=== PATIENT | male | born 1955 | race Caucasian/White ===

== ENCOUNTER 2019-01-06 07:58 | Day surgery (SDC) | payer OTHER ==
--- NOTE | 2019-01-05 17:18 | HPN ---
Date/Time of Note Date/Time of Note DATE: 01/05/19 TIME: 17:18 Interval H&P Admission Note Pt. seen H&P reviewed: No system changes OTIS BENITEZ MD Jan 05, 2019 17:18
[2019-01-05 17:50] VITALS: BMI 18.3
[~2019-01-06] VITALS: Ht 162.6 cm; Wt 49.9 kg
[2019-01-06] VITALS (14 sets, daily range): BP systolic 109–150; BP diastolic 66–88; PULSE 78–98; RESP 13–19; Ht 162.6 cm; Wt 49.9 kg
[~2019-01-06 07:58] MED LIST: CEFAZOLIN 1 GM INJ ONE; CEFAZOLIN 1 GM/50 ML (PMX) 50 ML IVPB ONE; POLYMYXIN/BACITRACIN 1L IRRIG IRR ONE; SOD CHLORIDE 0.9% 1,000 ML IV SCH
[2019-01-06] MEDS ORDERED: ATOR20TA38 PO (09:00)
--- NOTE | 2019-01-06 10:56 | PREAC ---
Date/Time of Note Date/Time of Note DATE: 01/06/19 TIME: 10:55 Anesthesia Eval and Record Evaluation Time Pre-Procedure Interview DATE: 01/06/19 TIME: 10:55 Age 63 Sex male NPO: 8 hrs Preoperative diagnosis HEAD AND NECK CANCER Planned procedure YRIS CATH PLACEMENT Past Medical History Past Medical History: Includes Cardio: Dyslipidemia Surgery & Anesthesia Issues No known issue Meds Anticoagulation: No Beta Zo within 24 hr: No Reason Beta Zo not given: Pt. not on B-Zo Reported Medications Atorvastatin Calcium* (Atorvastatin Calcium*) 20 Mg Tablet, 20 MG PO QHS, #30 TAB 01/06/19 Current Medications Sodium Chloride 1,000 ml @ 30 mls/hr Q24H IV ; Start 01/05/19 at 17:30 Meds reviewed: Yes Allergies Coded Allergies: No Known Allergy (Unverified , 01/06/19) Allergies Reviewed: Yes Labs/Studies Labs Reviewed: Reviewed by anesthesiologist test: N/A Studies: ECG (SR@70), CXR ( Prominent interstitial markings are again seen bilaterally, compatible with pulmonary fibrosis as seen on recent prior CT) Pre-procedure Exam Last vitals Vital Signs Date Temp Pulse Resp B/P (MAP) Pulse Ox O2 O2 Flow FiO2 Time Delivery Rate 01/06/19 96.7 90 16 109/66 98 Room Air 09:48 (80) Airway: Adequate mouth opening, Adequate thyromental dist Mallampati: Mallampati II Teeth: Abnormal (UPPER PARTIAL) Lung: Normal Heart: Normal ASA Physical Status ASA physical status: 2 Emergency: None Planned Anesthetic General/MAC: MAC Planned Pain Management Parenteral pain med Pre-operative Attestations Prior to commencing anesthesia and surgery, the patient was re-evaluated, there was verification of: *The patient's identity *The results of appropriate recent lab work and preoperative vital signs *The above evaluation not changing prior to induction *Anesthetic plan, risk benefits, alternative and complications discussed with patient/family; questions answered; patient/family understands, accepts and wishes to proceed. Bradley Montez M.D. Jan 06, 2019 10:56
[2019-01-06] MEDS ORDERED: HYDROmorphONE 1 MG/5 ML IV SYRINGE IV PRN ×3 (11:00)
[2019-01-06] MEDS ORDERED: DIPHENHYDRAMINE 50 MG INJ IV PRN (11:00)
[2019-01-06] MEDS ORDERED: EPHEDrine SULFATE 50 MG/5 ML SYG IV PRN (11:00)
[2019-01-06] MEDS ORDERED: LABETALOL HCL 20MG INJ IV PRN (11:00)
[2019-01-06] MEDS ORDERED: ALBUTEROL 0.083% (NEB) 2.5 MG/3 ML AMP HHN PRN (11:00)
[2019-01-06] MEDS ORDERED: TRIMETHOBENZAMIDE 100 MG/ML VIAL IM PRN (11:00)
[2019-01-06] MEDS ORDERED: MIDAZOLAM 1 MG/ML 2 ML INJ IV PRN (11:00)
[2019-01-06] MEDS ORDERED: OXYCODONE/ACETAMINOPHEN (5/325) TAB PO PRN ×2 (11:00)
[2019-01-06] MEDS ORDERED: IPRATROPIUM (NEB) 0.5 MG/2.5 ML AMP HHN PRN (11:00)
[2019-01-06] MEDS ORDERED: ONDANSETRON 4 MG INJ IV PRN (11:00)
[2019-01-06] MEDS ORDERED: FENTAnyl 50 MCG/ML VIAL IV PRN ×3 (11:00)
[2019-01-06] MEDS ORDERED: hydrALAzine 20 MG INJ IV PRN (11:00)
[2019-01-06] MEDS ORDERED: MEPERIDINE 25 MG INJ IV PRN (11:00)
[2019-01-06] MEDS ORDERED: HEPARIN 1000 UNITS/ML 10 ML INJ ONE (11:04)
[2019-01-06] MEDS ORDERED: LIDOCAINE 1%/EPI (1:100,000) (MDV) 20 ML ONE ×2 (11:04→11:56)
[2019-01-06] MEDS ORDERED: FENTAnyl 50 MCG/ML VIAL ONE (11:26)
[2019-01-06] MEDS ORDERED: PROPOFOL 20 ML ONE (11:26)
[2019-01-06] MEDS ORDERED: ONDANSETRON 4 MG INJ ONE (11:30)
[2019-01-06] MEDS ORDERED: MIDAZOLAM 1 MG/ML 2 ML INJ ONE (11:30)
--- NOTE | 2019-01-06 12:41 | PAC ---
Date/Time of Note Date/Time of Note DATE: 01/06/19 TIME: 12:41 Post-Anesthesia Notes Post-Anesthesia Note Last documented vital signs Vital Signs Date Temp Pulse Resp B/P (MAP) Pulse Ox O2 O2 Flow FiO2 Time Delivery Rate 01/06/19 96.7 90 16 109/66 98 Room Air 09:48 (80) Activity: WNL Respiratory function: WNL Cardiovascular function: WNL Mental status: Baseline Pain reasonably controlled: Yes Hydration appropriate: Yes Nausea/Vomiting absent: Yes Bradley Montez M.D. Jan 06, 2019 12:41
--- NOTE | 2019-01-09 01:11 | RADRPT ---
Vent Rate: 70 bpm RR Interval: 860 msec CA Interval: 157 msec QRS Duration: 93 msec QT Interval: 378 msec QTC Interval: 408 msec P-R-T [place]: 38 - 68 - 52 degrees Sinus rhythm...normal P axis, V-rate 50- 99 Probable left atrial enlargement...P >50mS, <-0.10mV V1 Inferior infarct, acute...ST>0.10mV, T upright, II III aVF Lateral wall also involved...lat Q or ST-T abnormalities Electronically Signed By: Buck Dennison
== END 2019-01-06 14:35 | disposition home or self-care (01) ==
LOC: SDS 07:58
PROVIDERS: ATTEND Radiology Diagnostic Radiology
DX: C76.0 Malignant neoplasm of head, face and neck (principal); E78.5 Hyperlipidemia, unspecified
CPT/HCPCS: 36561; 71045; 93005; C1788; J0690; J1644; J2250; J3010; J2405

== ENCOUNTER 2019-02-20 07:13 | Day surgery (SDC) | payer OTHER ==
[~2019-02-20 07:13] MED LIST changes: +ATOR20TA38 PO; -CEFAZOLIN 1 GM INJ ONE; -CEFAZOLIN 1 GM/50 ML (PMX) 50 ML IVPB ONE; -POLYMYXIN/BACITRACIN 1L IRRIG IRR ONE; -SOD CHLORIDE 0.9% 1,000 ML IV SCH
[2019-02-20] MEDS ORDERED: IOHEXOL 300MG/ML 30 ML BTL ONE (09:14)
[2019-02-20] MEDS ORDERED: HEPARIN 1000 UNITS/ML 10 ML INJ ONE (09:19)
--- NOTE | 2019-02-22 13:25 | HPN ---
Date/Time of Note Date/Time of Note DATE: 02/22/19 TIME: 13:25 Interval H&P Admission Note Pt. seen H&P reviewed: No system changes NED DILLARD MD Feb 22, 2019 13:25
== END 2019-02-23 10:21 | disposition home or self-care (01) ==
LOC: SDS 07:13 → EDSTATUS 09:00 → SDS 02-23 10:21
PROVIDERS: ATTEND Internal Medicine
DX: Z45.2 Encounter for adjustment and management of vascular access device (principal)
CPT/HCPCS: 36598; J1644; Q9967; 77001

== ENCOUNTER 2019-03-10 11:14 | Day surgery (SDC) | payer OTHER ==
[~2019-03-10] VITALS: Ht 162.6 cm; Wt 41.0 kg
[2019-03-10 12:32] VITALS: Ht 162.6 cm; Wt 41.0 kg
[2019-03-10] MEDS ORDERED: HTN MED PO (12:43)
[2019-03-10 12:46] VITALS: BP 137/90; PULSE 86
--- NOTE | 2019-03-10 13:03 | PREAC ---
Date/Time of Note Date/Time of Note DATE: 03/10/19 TIME: 12:58 Anesthesia Eval and Record Evaluation Time Pre-Procedure Interview DATE: 03/10/19 TIME: 12:58 Age 63 Sex male NPO: 8 hrs Preoperative diagnosis dysphagia Planned procedure EGD, PEG placement Past Medical History Past Medical History: Includes (neck cancer) Cardio: HTN Surgery & Anesthesia Issues No known issue Meds Anticoagulation: No Beta Zo within 24 hr: No Reason Beta Zo not given: Pt. not on B-Zo Reported Medications [Htn Med] No Conflict Check, PO DAILY PRN for HIGH BP 03/10/19 Discontinued Reported Medications Atorvastatin Calcium* (Atorvastatin Calcium*) 20 Mg Tablet, 20 MG PO QHS, #30 TAB 01/06/19 Meds reviewed: Yes Allergies Coded Allergies: No Known Allergy (Unverified , 03/10/19) Allergies Reviewed: Yes Labs/Studies Labs Reviewed: Reviewed by anesthesiologist test: N/A Pre-procedure Exam Last vitals Vital Signs Date Temp Pulse Resp B/P (MAP) Pulse Ox O2 O2 Flow FiO2 Time Delivery Rate 03/10/19 97.6 86 137/90 100 Room Air 12:46 (106) Airway: Adequate mouth opening, Adequate thyromental dist Mallampati: Mallampati II Teeth: Normal Lung: Normal Heart: Normal ASA Physical Status ASA physical status: 3 Emergency: None Planned Anesthetic General/MAC: Mask Planned Pain Management Parenteral pain med Pre-operative Attestations Prior to commencing anesthesia and surgery, the patient was re-evaluated, there was verification of: *The patient's identity *The results of appropriate recent lab work and preoperative vital signs *The above evaluation not changing prior to induction *Anesthetic plan, risk benefits, alternative and complications discussed with patient/family; questions answered; patient/family understands, accepts and wishes to proceed. Community Living Coach used DOMINICK ALLEN MD Mar 10, 2019 13:03
[2019-03-10] MEDS ORDERED: LIDOCAINE 2% (SDV) 5 ML INJ ONE (13:05)
[2019-03-10] MEDS ORDERED: PROPOFOL 20 ML ONE (13:05)
[2019-03-10] MEDS ORDERED: CEFAZOLIN 2 GM/50 ML (PMX) 50 ML IVPB ONE (13:08)
[2019-03-10] MEDS ORDERED: LABETALOL HCL 20MG INJ ONE (13:23)
[2019-03-10] MEDS ORDERED: ONDANSETRON 4 MG INJ IV PRN (13:30)
--- NOTE | 2019-03-10 13:32 | PAC ---
Date/Time of Note Date/Time of Note DATE: 03/10/19 TIME: 13:31 Post-Anesthesia Notes Post-Anesthesia Note Last documented vital signs Vital Signs Date Temp Pulse Resp B/P (MAP) Pulse Ox O2 O2 Flow FiO2 Time Delivery Rate 03/10/19 97.6 86 137/90 100 Room Air 12:46 (106) Activity: WNL Respiratory function: WNL Cardiovascular function: WNL Mental status: Baseline Pain reasonably controlled: Yes Hydration appropriate: Yes Nausea/Vomiting absent: Yes Comments BP: 118/74 HR: 80 RR: 15 T: 98 SaO2: 99% DOMINICK ALLEN MD Mar 10, 2019 13:32
[2019-03-10 13:52] VITALS: BP 153/85; PULSE 72; RESP 18
[2019-03-10] MEDS ORDERED: HYDROmorphONE 1 MG/5 ML IV SYRINGE IV PRN ×2 (14:00)
== END 2019-03-10 15:09 | disposition home or self-care (01) ==
LOC: GIL 11:14
PROVIDERS: ATTEND Internal Medicine Gastroenterology
DX: R13.10 Dysphagia, unspecified (principal); I10 Essential (primary) hypertension
CPT/HCPCS: 43246; J0690; Z7610

== ENCOUNTER 2019-04-08 12:44 | Emergency (ER) | payer OTHER ==
[~2019-04-08] VITALS: Ht 165.1 cm; Wt 40.3 kg
[~2019-04-08 12:44] MED LIST changes: -ATOR20TA38 PO; +HTN MED PO
[2019-04-08 12:54] VITALS: Ht 165.1 cm; Wt 40.3 kg
[2019-04-08] MEDS ORDERED: SOD CHLORIDE 0.9% 500 ML IV STA (14:31)
--- NOTE | 2019-04-08 14:36 | ERD ---
ER Documentation Chief Complaint Chief Complaint sent by PMD to r/o internal bleed d/t low bp; on chemo and radiation HPI Patient has a history of throat and neck cancer. Last chemotherapy was 2 weeks ago. Patient went to primary care doctor today for routine checkup. Was found to be tachycardic and hypotensive. Patient is asymptomatic. Has been tolerating 3 out of 4 G-tube feeds per day over the past several weeks. No nausea or vomiting. No diarrhea. No abdominal chest pain. No shortness of breath. Has not felt more weak than usual has not felt more tired. No chills or fevers. ROS All systems reviewed and are negative except as per history of present illness. Medications Home Meds Discontinued Reported Medications [Htn Med] No Conflict Check, PO DAILY PRN for HIGH BP 03/10/19 Allergies Allergies: Coded Allergies: No Known Allergy (Unverified , 04/08/19) PMhx/Soc History of Surgery: Yes (LT CHEST PORTOCATH, NECK SX, G-tube) Anesthesia Reaction: No Hx Neurological Disorder: No Hx Respiratory Disorders: Yes (PULMONARY FIBROSIS) Hx Cardiac Disorders: Yes (Hypertension) Hx Psychiatric Problems: No Hx Miscellaneous Medical Probl: Yes (Neck CA) Hx Alcohol Use: Yes (OCC) Hx Substance Use: No Hx Tobacco Use: No Smoking Status: Unknown if ever smoked Physical Exam Vitals Vital Signs Date Temp Pulse Resp B/P (MAP) Pulse Ox O2 O2 Flow FiO2 Time Delivery Rate 04/08/19 98.0 84 20 141/84 100 Room Air 15:48 (103) 04/08/19 98.0 89 20 125/83 100 Room Air 14:21 (97) 04/08/19 98.0 103 20 106/68 98 12:54 (81) Physical Exam Const: No acute distress cachectic Head: Atraumatic Eyes: Normal Conjunctiva ENT: Normal External Ears, Nose and Mouth. Neck: Full range of motion. No meningismus. Resp: Clear to auscultation bilaterally Cardio: Regular rate and rhythm, no murmurs Abd: Soft, non tender, non distended. Normal bowel sounds G-tube clean dry intact Skin: No petechiae or rashes discoloration to left side of neck. Secondary to cancer Back: No midline or flank tenderness Ext: No cyanosis, or edema Neur: Awake and alert Psych: Normal Mood and Affect Result Diagram: 04/08/19 1626 04/08/19 1440 Results 24 hrs Laboratory Tests Test 04/08/19 14:40 04/08/19 15:20 04/08/19 16:26 White Blood Count 4.9 10^3/ul 4.7 10^3/ul Red Blood Count 3.08 10^6/ul 2.91 10^6/ul Hemoglobin 7.6 g/dl 7.2 g/dl Hematocrit 24.1 % 22.7 % Mean Corpuscular Volume 78.2 fl 78.0 fl Mean Corpuscular Hemoglobin 24.7 pg 24.7 pg Mean Corpuscular 31.5 g/dl 31.7 g/dl Hemoglobin Concent Red Cell Distribution Width 23.2 % 23.0 % Platelet Count 260 10^3/UL 247 10^3/UL Mean Platelet Volume 8.7 fl 8.7 fl Immature Granulocytes % 1.000 % 1.100 % Neutrophils % 85.3 % 85.5 % Lymphocytes % 5.3 % 5.1 % Monocytes % 7.6 % 7.2 % Eosinophils % 0.6 % 0.9 % Basophils % 0.2 % 0.2 % Nucleated Red Blood Cells % 0.0 /100WBC 0.0 /100WBC Immature Granulocytes # 0.050 10^3/ul 0.050 10^3/ul Neutrophils # 4.1 10^3/ul 4.0 10^3/ul Lymphocytes # 0.3 10^3/ul 0.2 10^3/ul Monocytes # 0.4 10^3/ul 0.3 10^3/ul Eosinophils # 0.0 10^3/ul 0.0 10^3/ul Basophils # 0.0 10^3/ul 0.0 10^3/ul Nucleated Red Blood Cells # 0.0 10^3/ul 0.0 10^3/ul Sodium Level 136 mmol/L Potassium Level 3.3 mmol/L Chloride Level 98 mmol/L Carbon Dioxide Level 32 mmol/L Anion Gap 6 Blood Urea Nitrogen 16 mg/dl Creatinine 0.60 mg/dl Est Glomerular Filtrat > 60 mL/min Rate mL/min Glucose Level 123 mg/dl Calcium Level 9.3 mg/dl Total Bilirubin 0.2 mg/dl Direct Bilirubin 0.00 mg/dl Indirect Bilirubin 0.2 mg/dl Aspartate Amino 17 IU/L Transf (AST/SGOT) Alanine 17 IU/L Aminotransferase (ALT/SGPT) Alkaline Phosphatase 87 IU/L Troponin I < 0.012 ng/ml Total Protein 7.3 g/dl Albumin 3.3 g/dl Globulin 4.00 g/dl Albumin/Globulin Ratio 0.82 Lipase 28 U/L Urine Color YELLOW Urine Clarity CLOUDY Urine pH 7.0 Urine Specific [place] 1.013 Urine Ketones NEGATIVE mg/dL Urine Nitrite NEGATIVE mg/dL Urine Bilirubin NEGATIVE mg/dL Urine Urobilinogen NEGATIVE mg/dL Urine Leukocyte Esterase NEGATIVE Nubia/ul Urine Microscopic RBC 1 /HPF Urine Microscopic WBC 5 /HPF Urine Amorphous Crystals FEW /HPF Urine Bacteria FEW /HPF Urine Hemoglobin NEGATIVE mg/dL Urine Glucose NEGATIVE mg/dL Urine Total Protein NEGATIVE mg/dl Current Medications Medications Dose Sig/Ajit Start Time Status Last (Trade) Ordered Route PRN Stop Time Admin Dose Reason Admin Sodium 500 ml @ Q1H STAT 04/08/19 DC 04/08/19 Chloride 500 mls/hr IV 14:31 14:55 04/08/19 15:30 Procedures/MDM ECG Time: 1441 Ventricular Rate: 83 Rhythm: normal sinus rhythm. ST Segments: AK depression leads II III, aVF, V3 V4 V5 V6, borderline ST elevation in V5 V6. No ST depressions. AK QRS QT intervals within normal limits. No T wave inversions ECG Time: 1626 Ventricular Rate: 96 Rhythm: normal sinus rhythm. ST Segments: without evidence of depressions or elevations Intervals: without evidence of AV block, new BBB, long QT, Brug[place] No evidence of delta wave. AK depression seen in prior EKG not present currently Progress note Time: 1638 Recent vitals: Heart rate 93 blood pressure 147/90 Update: Repeat hemoglobin stable. Blood pressure has been stable heart rate has been stable patient is asymptomatic with no obvious signs of bleeding. Anemia likely tainted to chemotherapy. Will discharge patient with strict return precautions and plan to follow-up with on Wednesday Patient being evaluated for hypertension clinic's office however has been normotensive in the ER. Vital signs have been stable throughout the course of his ER presentation. Patient is asymptomatic. No weakness, no orthostatic symptoms. Hemoglobin has decreased over the past month however there is no evidence of bleeding. No rectal bleeding no vomiting bleeding. Patient did have chemotherapy 2 weeks ago and this could be attribute by that. We will do serial hemoglobins. Departure Diagnosis: Primary Impression: Hypotension Condition: Stable Patient Instructions: Low Blood Pressure (Hypotension) Additional Instructions: Your hemoglobin was 7.6 today. The rest of your blood work including her CBC, CMP were unremarkable. Your EKG was normal. Your blood pressure and heart rate were within normal limits whole time you are here. FLAQUITA FAYE MD Apr 08, 2019 14:36
[2019-04-08] MEDS ORDERED: HEPARIN (100 UNITS/ML) 5 ML SYG CATHETER ONE (17:00)
[2019-04-08] MEDS ORDERED: ONDANSETRON 4 MG INJ IV STA (17:17)
[2019-04-08 17:20] VITALS: BP 133/78; PULSE 79; RESP 20
== END 2019-04-08 17:50 | disposition home or self-care (01) ==
LOC: E/R 12:44
DX: I95.9 Hypotension, unspecified (principal); I10 Essential (primary) hypertension; Z85.89 Personal history of malignant neoplasm of other organs and systems
CPT/HCPCS: 71045; 80053; 81001; 83690; 84484; 85025; 86703; 86706; 86803; 87340; 93005; J1642; J7040; Z7502; Z7610

== ENCOUNTER 2019-07-07 16:27 | Inpatient (IN) | payer OTHER ==
[~2019-07-07] VITALS: Ht 167.6 cm; Wt 40.7 kg
[2019-07-07 17:12] VITALS: Ht 167.6 cm; Wt 40.7 kg
[2019-07-07] MEDS ORDERED: ONDANSETRON 4 MG INJ IV PRN (20:30)
[2019-07-07] MEDS ORDERED: ACETAMINOPHEN 325 MG TAB PO PRN (20:30)
[2019-07-08 03:43] VITALS: BP 144/82; PULSE 101; RESP 20
[2019-07-08] MEDS ORDERED: ALBUTEROL/IPRATROPIUM (NEB) 3 ML AMP HHN PRN (09:00)
[2019-07-08] MEDS ORDERED: ONDANSETRON 4 MG INJ IV PRN (09:00)
[2019-07-08] MEDS ORDERED: NACL 0.9% 3 ML SYG IV SCH (09:00)
[2019-07-08] MEDS: PANTOPRAZOLE 40 MG INJ IV SCH (10:11)
[2019-07-08 10:55] VITALS: RESP 24
[2019-07-08] MEDS ORDERED: GUAIFENESIN 20 MG/ML 5ML CUP PO PRN (11:30)
[2019-07-08] MEDS ORDERED: SCOPOLAMINE 1.5 MG PATCH TRANSDERM SCH (13:30)
[2019-07-08] MEDS: SOD CHLORIDE 0.45% 1,000 ML IV SCH (13:39)
[2019-07-08 14:14] VITALS: BP 113/74; PULSE 98; RESP 18
[2019-07-08] MEDS: SOD FERRIC GLUC COMPLX 125 MG in SOD CHLORIDE 0.9% 100 ML IVPB SCH (14:52)
[2019-07-08 20:22] VITALS: BP 118/72; PULSE 95; RESP 20
[2019-07-09] VITALS (7 sets, daily range): BP systolic 106–132; BP diastolic 65–82; PULSE 92–103; RESP 18–28
[2019-07-09] MEDS: SOD CHLORIDE 0.45% 1,000 ML IV SCH ×3 (03:23→22:39)
[2019-07-09] MEDS: PANTOPRAZOLE 40 MG INJ IV SCH (05:21)
[2019-07-09] MEDS: SOD FERRIC GLUC COMPLX 125 MG in SOD CHLORIDE 0.9% 100 ML IVPB SCH (13:51)
[2019-07-10 01:55] VITALS: BP 132/77; PULSE 100; RESP 18
[2019-07-10] MEDS: PANTOPRAZOLE 40 MG INJ IV SCH (05:49)
[2019-07-10 07:58] VITALS: BP 100/66; RESP 18
== END 2019-07-10 13:21 | disposition home or self-care (01) | DRG 812 ==
LOC: E/R 16:27 → MS1 20:03 → OBSVTOIN 07-09 04:23
PROVIDERS: ADMIT Internal Medicine; ATTEND Internal Medicine
PROC: 30233N1 Transfusion of Nonautologous Red Blood Cells into Peripheral Vein, Percutaneous Approach (ICD-10-PCS; principal; 2019-07-07)
DX: D63.0 Anemia in neoplastic disease (principal); Z68.1 Body mass index [BMI] 19.9 or less, adult; D64.81 Anemia due to antineoplastic chemotherapy; C76.0 Malignant neoplasm of head, face and neck; R13.10 Dysphagia, unspecified; Z93.1 Gastrostomy status; H91.90 Unspecified hearing loss, unspecified ear; J84.10 Pulmonary fibrosis, unspecified; R62.7 Adult failure to thrive; Z92.3 Personal history of irradiation
CPT/HCPCS: 36430; 80048; 80053; 82270; 82728; 83540; 83615; 83735; 84100; 84466; 85014; 85018; 85025; 86850; 86900; 86901; 86920; 93005; 97116; 97162; C9113; G0378; J2916; P9016